=== PATIENT | male | born 1945 | race Caucasian/White ===

== ENCOUNTER 2022-01-07 21:48 | Emergency (ER) | payer MEDICARE, OTHER ==
[2022-01-08] MEDS ORDERED: BACTROBAN OINT22 GM EXT (02:59)
[2022-01-08] MEDS ORDERED: DOXYCYCLINE HY100 M2 PO (02:59)
== END 2022-01-08 03:20 | disposition home or self-care (01) ==
LOC: ER1 21:48
DX: S61.255A Open bite of left ring finger without damage to nail, initial encounter (principal); S51.851A Open bite of right forearm, initial encounter; I10 Essential (primary) hypertension; R40.2410 Glasgow coma scale score 13-15, unspecified time; Z88.0 Allergy status to penicillin; Z86.73 Personal history of transient ischemic attack (TIA), and cerebral infarction without residual deficits; W54.0XXA Bitten by dog, initial encounter; Z23 Encounter for immunization
CPT/HCPCS: 12002; 73090; 73130; 90471; 90715; 99283

== ENCOUNTER → 2022-01-13 | Outpatient (CLI) | payer MEDICARE, OTHER ==
[~2022-01-13] MED LIST: BACTROBAN OINT22 GM EXT; DOXYCYCLINE HY100 M2 PO
== END ==
LOC: RAD 13:22
DX: S62.622A Displaced fracture of middle phalanx of right middle finger, initial encounter for closed fracture (principal); S61.411A Laceration without foreign body of right hand, initial encounter; R60.9 Edema, unspecified
CPT/HCPCS: 73090; 73110; 73130